=== PATIENT | male | born 1945 | race Caucasian/White ===

== ENCOUNTER → 2016-10-26 | Outpatient (CLI) | payer MEDICARE, BC ==
[2015-11-06 10:50] VITALS: BP 106/58
[~2016-10-26] MED LIST: ASPIRIN 32325 MG/TAB PO; CENTRUM SILVER1 TA1 PO; CENTRUM1 TA1 PO; COREG6.25 MG PO; EFFIENT10 M1 PO; FISH OIL1 IU PO; FLONASE0.05 MG/AC NS; FOLIC ACID1 MG PO; HYDROXYZINE HCL25 M1 PO; LASIX20 MG PO; LEXAPRO10 MG PO; MUCINEX1200 MG PO; NATURAL E400 IU PO; REQUIP 1MG T1 MG/TAB PO; SPIRIVA18 MCG IH; STIOLTO RESPIMAT4 GM IH; THEODUR 200MG PO; TUMS500 MG PO; VASOTEC 2.2.5 MG/TAB PO; VASOTEC10 M1 PO; VENTOLIN0.09 MG IH; VITAMIN B-6100 MG PO; ZANTAC150 M1 PO; ZANTAC150 MG PO; ZYRTEC-D 5 MG-11 TER PO
== END ==
LOC: LAB 09:00
DX: I25.10 Atherosclerotic heart disease of native coronary artery without angina pectoris (principal); E11.9 Type 2 diabetes mellitus without complications; N28.9 Disorder of kidney and ureter, unspecified

== ENCOUNTER → 2017-01-18 | Outpatient (CLI) | payer MEDICARE, BC ==
[2015-11-06 10:50] VITALS: BP 106/58
[2017-01-18 14:38] LABS: HEMATOCRIT 34.5 % (42.0-52.0); HEMOGLOBIN 11.4 g/dL (13.5-18.0); MEAN CELL VOLUME 90 fl (78-100); MEAN CORPUSCULAR HEMOGLOBIN 30 pg (27-31); MEAN CORPUSCULAR HGB CONC 33 g/dL (33-37); MEAN PLATELET VOLUME 9.8 fl (7.4-10.4); PLATELET COUNT 253 K/mm3 (130-400); RED BLOOD COUNT 3.84 M/mm3 (4.20-5.60); RED CELL DISTRIBUTION WIDTH 13.3 % (11.5-14.5); WHITE BLOOD COUNT 10.5 K/mm3 (4.8-10.8)
[2017-01-18 14:46] LABS: BUN/CREATININE RATIO 13.5 (6.0-26.0); CALCIUM 9.4 mg/dL (8.4-10.2); POTASSIUM 4.4 mmol/L (3.6-5.0)
[2017-01-18 15:07] LABS: LYMPHOCYTE 8 % (20-51); MONOCYTE 8 % (3-10); NEUTROPHILS 84 % (42-75)
== END ==
LOC: RAD 14:07
PROVIDERS: Nurse Practitioner Family
DX: R05 Cough (principal); R06.2 Wheezing; R50.9 Fever, unspecified

== ENCOUNTER 2017-05-10 11:25 | Inpatient (IN) | payer MEDICARE, BC ==
[~2017-05-10] VITALS: Ht 172.7 cm; Wt 70.5 kg
[~2017-05-10 11:25] MED LIST changes: -CARDIZEM CD 18180 MG PO; -CEFDINIR300 MG PO; -DALIRESP500 MCG PO; -IPRATROPIUM BROM3 M1 IH; -LOW DOSE ASPIRI81 MG PO; -PREDNISONE20 MG PO; -ROPINIROLE HCL1 MG PO; -THEOPHYLLINE400 M1 PO; -VASOTEC 10M10 MG/TAB PO; -ZITHROMAX500 M2 PO; -ZYRTEC10 M3 PO
[2017-05-10 11:41] VITALS: BP 119/66
[2017-05-10 11:55] VITALS: BP 119/66
[2017-05-10] MEDS ORDERED: THEOPHYLLINE400 M1 PO (13:45)
[2017-05-10] MEDS ORDERED: CARDIZEM CD 18180 MG PO (14:26)
[2017-05-10] MEDS ORDERED: VASOTEC 10M10 MG/TAB PO (14:27)
[2017-05-10] MEDS ORDERED: LOW DOSE ASPIRI81 MG PO (14:28)
[2017-05-10] MEDS ORDERED: ROPINIROLE HCL1 MG PO (14:30)
[2017-05-10] MEDS ORDERED: DALIRESP500 MCG PO ×2 (14:30→14:44)
[2017-05-10] MEDS ORDERED: HYDROXYZINE HCL25 M1 PO (14:44)
[2017-05-10] MEDS ORDERED: ZYRTEC10 M3 PO (14:44)
[2017-05-10 15:19] VITALS: BP 117/64
[2017-05-10 19:02] LABS: BUN/CREATININE RATIO 16.6 (6.0-26.0); CALCIUM 8.3 mg/dL (8.4-10.2); POTASSIUM 4.1 mmol/L (3.6-5.0)
[2017-05-10 19:08] VITALS: BP 122/61
[2017-05-10 22:58] VITALS: BP 131/63
[2017-05-11] VITALS (7 sets, daily range): BP systolic 99–140; BP diastolic 59–80
[2017-05-11 08:46] LABS: EOS % 0.3 % (0.0-4.0); HEMATOCRIT 37.5 % (42.0-52.0); HEMOGLOBIN 12.1 g/dL (13.5-18.0); LYMPH# 0.8 (1.50-4.00); MEAN CELL VOLUME 85 fl (78-100); MEAN CORPUSCULAR HEMOGLOBIN 27 pg (27-31); MEAN CORPUSCULAR HGB CONC 32 g/dL (33-37); MEAN PLATELET VOLUME 9.9 fl (7.4-10.4); MONO # 0.3 (0.20-0.80); NEU # 1.9 (1.40-6.50); PLATELET COUNT 150 K/mm3 (130-400); RED BLOOD COUNT 4.43 M/mm3 (4.20-5.60); RED CELL DISTRIBUTION WIDTH 14.2 % (11.5-14.5)
[2017-05-11 09:00] LABS: BUN/CREATININE RATIO 15.6 (6.0-26.0); CALCIUM 7.5 mg/dL (8.4-10.2)
[2017-05-12 02:52] VITALS: BP 117/63
[2017-05-12 06:40] VITALS: BP 114/72
[2017-05-12 11:04] VITALS: BP 120/59
[2017-05-12 15:11] VITALS: BP 109/59
[2017-05-12 18:21] VITALS: BP 109/59; BP 110/68
[2017-05-12 23:11] VITALS: BP 109/65
[2017-05-13 03:19] VITALS: BP 134/76
[2017-05-13 06:32] VITALS: BP 130/61
[2017-05-13 07:12] LABS: HEMATOCRIT 35.4 % (42.0-52.0); HEMOGLOBIN 11.7 g/dL (13.5-18.0); MEAN CELL VOLUME 86 fl (78-100); MEAN CORPUSCULAR HEMOGLOBIN 28 pg (27-31); MEAN CORPUSCULAR HGB CONC 33 g/dL (33-37); MEAN PLATELET VOLUME 10.4 fl (7.4-10.4); PLATELET COUNT 146 K/mm3 (130-400); RED BLOOD COUNT 4.13 M/mm3 (4.20-5.60); RED CELL DISTRIBUTION WIDTH 14.7 % (11.5-14.5); WHITE BLOOD COUNT 2.9 K/mm3 (4.8-10.8)
[2017-05-13 07:17] LABS: ALBUMIN 3.3 g/dL (3.5-5.0); BUN/CREATININE RATIO 13.7 (6.0-26.0); CALCIUM 8.6 mg/dL (8.4-10.2); POTASSIUM 3.9 mmol/L (3.6-5.0); TOTAL BILIRUBIN 0.1 mg/dL (0.2-1.3); TOTAL PROTEIN 6.1 g/dL (6.3-8.2)
[2017-05-13 07:41] LABS: LYMPHOCYTE 36 % (20-51); MONOCYTE 10 % (3-10); NEUTROPHILS 54 % (42-75)
[2017-05-13 11:02] VITALS: BP 126/66
[2017-05-13 15:08] VITALS: BP 119/63
[2017-05-13 18:30] VITALS: BP 124/73
[2017-05-13 23:19] VITALS: BP 91/62
[2017-05-14 03:23] VITALS: BP 148/78
[2017-05-14 06:46] VITALS: BP 144/100
== END 2017-05-14 10:00 | disposition swing bed (61) | DRG 191 ==
LOC: ED 11:25 → EDSTATUS 11:33 → MED/SURG 11:35 → EDSTATUS 11:49 → MED/SURG 14:57
PROVIDERS: Internal Medicine; ADMIT Nurse Practitioner Family
DX: J44.0 Chronic obstructive pulmonary disease with (acute) lower respiratory infection (principal); N17.9 Acute kidney failure, unspecified; J44.1 Chronic obstructive pulmonary disease with (acute) exacerbation; J22 Unspecified acute lower respiratory infection; E86.0 Dehydration; G20 Parkinson's disease; I12.9 Hypertensive chronic kidney disease with stage 1 through stage 4 chronic kidney disease, or unspecified chronic kidney disease; E11.22 Type 2 diabetes mellitus with diabetic chronic kidney disease; N18.3 Chronic kidney disease, stage 3 (moderate); Z87.891 Personal history of nicotine dependence
CPT/HCPCS: A7034; J0456; J0696; J1650; J2405; J7030; J7050; J7512; Q0177

== ENCOUNTER → 2017-05-10 | Outpatient (CLI) | payer MEDICARE, BC ==
[2015-11-06 10:50] VITALS: BP 106/58
[~2017-05-10] MED LIST changes: +CARDIZEM CD 18180 MG PO; +CEFDINIR300 MG PO; +DALIRESP500 MCG PO; +IPRATROPIUM BROM3 M1 IH; +LOW DOSE ASPIRI81 MG PO; +PREDNISONE20 MG PO; +ROPINIROLE HCL1 MG PO; +THEOPHYLLINE400 M1 PO; +VASOTEC 10M10 MG/TAB PO; +ZITHROMAX500 M2 PO; +ZYRTEC10 M3 PO
[2017-05-10 10:39] LABS: HEMATOCRIT 43.7 % (42.0-52.0); HEMOGLOBIN 14.4 g/dL (13.5-18.0); MEAN CELL VOLUME 85 fl (78-100); MEAN CORPUSCULAR HEMOGLOBIN 28 pg (27-31); MEAN CORPUSCULAR HGB CONC 33 g/dL (33-37); MEAN PLATELET VOLUME 10.2 fl (7.4-10.4); PLATELET COUNT 231 K/mm3 (130-400); RED BLOOD COUNT 5.14 M/mm3 (4.20-5.60); RED CELL DISTRIBUTION WIDTH 14.2 % (11.5-14.5); WHITE BLOOD COUNT 6.4 K/mm3 (4.8-10.8)
[2017-05-10 10:52] LABS: BUN/CREATININE RATIO 14.5 (6.0-26.0); CALCIUM 9.4 mg/dL (8.4-10.2); POTASSIUM 4.7 mmol/L (3.6-5.0)
[2017-05-10 10:55] LABS: BAND 1 % (0-10); LYMPHOCYTE 6 % (20-51); MONOCYTE 5 % (3-10); NEUTROPHILS 87 % (42-75)
[2017-05-10 11:09] LABS: URINE APPEARANCE CLEAR; URINE COLOR YELLOW
[2017-05-10 11:10] LABS: URINE BILIRUBIN NEGATIVE (NEGATIVE); URINE BLOOD 250 ery/uL (NEGATIVE); URINE GLUCOSE NEGATIVE (NEGATIVE); URINE KETONE NEGATIVE (NEGATIVE); URINE LEUKOCYTE ESTERASE NEGATIVE (NEGATIVE); URINE MUCUS PRESENT (NOT PRESENT); URINE NITRATE NEGATIVE (NEGATIVE); URINE PROTEIN(semi-quant) 1+ mg/dL (NEGATIVE); URINE UROBILINOGEN NORMAL (NORMAL)
== END ==
LOC: RAD 10:20
PROVIDERS: Nurse Practitioner Family
DX: R05 Cough (principal); R06.2 Wheezing; R53.1 Weakness; R06.02 Shortness of breath; R11.0 Nausea; J43.9 Emphysema, unspecified

== ENCOUNTER 2017-05-14 09:44 | Inpatient (IN) | payer MEDICARE, BC ==
[~2017-05-14] VITALS: Ht 172.7 cm; Wt 70.5 kg
[~2017-05-14 09:44] MED LIST changes: +CARDIZEM CD 18180 MG PO; +DALIRESP500 MCG PO; +LOW DOSE ASPIRI81 MG PO; +ROPINIROLE HCL1 MG PO; +THEOPHYLLINE400 M1 PO; +VASOTEC 10M10 MG/TAB PO; +ZYRTEC10 M3 PO
[2017-05-14 10:00] VITALS: BP 158/87
[2017-05-14 10:40] VITALS: BP 158/87
[2017-05-14 18:31] VITALS: BP 121/63
[2017-05-15 06:07] VITALS: BP 127/74
[2017-05-15 18:43] VITALS: BP 144/67
[2017-05-16 06:31] VITALS: BP 129/82
[2017-05-16 17:52] VITALS: BP 122/78
[2017-05-17 06:24] VITALS: BP 126/82
[2017-05-17 18:12] VITALS: BP 105/66
[2017-05-18 06:39] VITALS: BP 153/81
[2017-05-18 18:34] VITALS: BP 112/64
[2017-05-19 06:53] VITALS: BP 125/73
[2017-05-19 17:54] VITALS: BP 110/69
[2017-05-20] MEDS ORDERED: CEFDINIR300 MG PO (06:38)
[2017-05-20] MEDS ORDERED: IPRATROPIUM BROM3 M1 IH (06:39)
[2017-05-20] MEDS ORDERED: ZITHROMAX500 M2 PO (06:39)
[2017-05-20] MEDS ORDERED: PREDNISONE20 MG PO (06:42)
== END 2017-05-20 10:04 | disposition home or self-care (01) | DRG 192 ==
LOC: MED/SURG 09:44
PROVIDERS: ADMIT Internal Medicine
DX: J44.0 Chronic obstructive pulmonary disease with (acute) lower respiratory infection (principal); J44.1 Chronic obstructive pulmonary disease with (acute) exacerbation; I12.9 Hypertensive chronic kidney disease with stage 1 through stage 4 chronic kidney disease, or unspecified chronic kidney disease; N18.3 Chronic kidney disease, stage 3 (moderate); E83.119 Hemochromatosis, unspecified; G20 Parkinson's disease; E11.22 Type 2 diabetes mellitus with diabetic chronic kidney disease; R53.1 Weakness
CPT/HCPCS: J1650; J7512; Q0177

== ENCOUNTER → 2018-04-25 | Outpatient (CLI) | payer MEDICARE, BC ==
[~2018-04-25] MED LIST changes: +CEFDINIR300 MG PO; +IPRATROPIUM BROM3 M1 IH; +PREDNISONE20 MG PO; +ZITHROMAX500 M2 PO
[2018-04-25 10:35] LABS: HEMATOCRIT 39.4 % (42.0-52.0); HEMOGLOBIN 12.8 g/dL (13.5-18.0)
== END ==
LOC: LAB 10:23
PROVIDERS: Internal Medicine
DX: J44.9 Chronic obstructive pulmonary disease, unspecified (principal); E83.110 Hereditary hemochromatosis

== ENCOUNTER → 2018-04-26 | Outpatient (CLI) | payer MEDICARE, BC | LOC: RAD 09:12 | DX: M47.22 Other spondylosis with radiculopathy, cervical region (principal); M48.02 Spinal stenosis, cervical region ==

== ENCOUNTER → 2018-05-15 | Outpatient (CLI) | payer MEDICARE, BC ==
[2018-05-15 11:31] LABS: ALBUMIN 4.4 g/dL (3.5-5.0); AST-SGOT 27 U/L (17-59); CARBON DIOXIDE 22 mmol/L (22-30); GLUCOSE 129 mg/dL (75-110); POTASSIUM 4.9 mmol/L (3.6-5.0); SODIUM 145 mmol/L (137-145); TOTAL BILIRUBIN 0.5 mg/dL (0.2-1.3); TOTAL PROTEIN 7.6 g/dL (6.3-8.2)
[2018-05-15 11:35] LABS: BASO # 0.1 (0.02-0.10); EOS # 0.6 (0.04-0.40); HEMATOCRIT 40.5 % (42.0-52.0); HEMOGLOBIN 13.5 g/dL (13.5-18.0); LYMPH# 1.2 (1.50-4.00); MEAN CELL VOLUME 89 fl (78-100); MEAN CORPUSCULAR HEMOGLOBIN 30 pg (27-31); MEAN CORPUSCULAR HGB CONC 33 g/dL (33-37); MEAN PLATELET VOLUME 9.8 fl (7.4-10.4); MONO # 0.5 (0.20-0.80); NEU # 6.7 (1.40-6.50); PLATELET COUNT 262 K/mm3 (130-400); RED BLOOD COUNT 4.54 M/mm3 (4.20-5.60); RED CELL DISTRIBUTION WIDTH 13.5 % (11.5-14.5); WHITE BLOOD COUNT 9.1 K/mm3 (4.8-10.8)
[2018-05-15 12:25] LABS: EOS % 7.1 % (0.0-4.0)
[2018-05-15 12:34] LABS: ALT/SGPT < 3 U/L (21-72)
== END ==
LOC: LAB 11:02
PROVIDERS: Internal Medicine
DX: C67.9 Malignant neoplasm of bladder, unspecified (principal); I25.10 Atherosclerotic heart disease of native coronary artery without angina pectoris; E11.9 Type 2 diabetes mellitus without complications; I10 Essential (primary) hypertension

== ENCOUNTER → 2018-06-13 | Outpatient (CLI) | payer MEDICARE, BC ==
[2018-06-13 10:56] LABS: HEMATOCRIT 41.1 % (42.0-52.0); HEMOGLOBIN 13.8 g/dL (13.5-18.0)
== END ==
LOC: LAB 10:22
PROVIDERS: Internal Medicine
DX: E83.110 Hereditary hemochromatosis (principal)

== ENCOUNTER → 2018-08-15 | Outpatient (CLI) | payer MEDICARE, BC ==
[2018-08-15 14:10] LABS: HEMOGLOBIN 13.7 g/dL (13.5-18.0)
== END ==
LOC: LAB 10:22
PROVIDERS: Internal Medicine
DX: E83.110 Hereditary hemochromatosis (principal)

== ENCOUNTER → 2018-10-10 | Outpatient (CLI) | payer MEDICARE, BC ==
[2018-10-10 10:18] LABS: HEMATOCRIT 39.6 % (42.0-52.0); HEMOGLOBIN 12.8 g/dL (13.5-18.0)
== END ==
LOC: LAB 10:09
PROVIDERS: Internal Medicine
DX: E83.110 Hereditary hemochromatosis (principal)

== ENCOUNTER → 2019-04-10 | Outpatient (CLI) | payer MEDICARE, BC ==
[2019-04-10 08:58] LABS: HEMATOCRIT 40.1 % (42.0-52.0); HEMOGLOBIN 13.2 g/dL (13.5-18.0)
== END ==
LOC: LAB 08:47
PROVIDERS: Internal Medicine
DX: E83.110 Hereditary hemochromatosis (principal)

== ENCOUNTER → 2019-10-01 | Outpatient (CLI) | payer MEDICARE, BC ==
[2019-10-01 11:17] LABS: HEMATOCRIT 44.2 % (42.0-52.0); HEMOGLOBIN 15.1 g/dL (13.5-18.0)
[2019-10-01 13:54] LABS: MEAN CELL VOLUME 92 fl (78-100); MEAN CORPUSCULAR HEMOGLOBIN 31 pg (27-31); MEAN CORPUSCULAR HGB CONC 34 g/dL (33-37); PLATELET COUNT 279 K/mm3 (130-400); RED BLOOD COUNT 4.88 M/mm3 (4.20-5.60); RED CELL DISTRIBUTION WIDTH 14.4 % (11.5-14.5)
[2019-10-01 13:57] LABS: ALBUMIN 4.5 g/dL (3.4-4.8)
[2019-10-01 13:58] LABS: POTASSIUM 4.7 mmol/L (3.5-5.1)
[2019-10-01 14:00] LABS: TOTAL PROTEIN 7.6 g/dL (6.2-8.1)
[2019-10-01 14:02] LABS: TOTAL BILIRUBIN 0.6 mg/dL (0.2-1.2)
[2019-10-01 14:07] LABS: MAGNESIUM 1.85 mg/dL (1.60-2.60)
[2019-10-01 14:23] LABS: LYMPHOCYTE 12 % (20-51); MONOCYTE 6 % (3-10); NEUTROPHILS 67 % (42-75)
== END ==
LOC: LAB 10:57
PROVIDERS: Internal Medicine
DX: E11.22 Type 2 diabetes mellitus with diabetic chronic kidney disease (principal); N18.3 Chronic kidney disease, stage 3 (moderate); I25.10 Atherosclerotic heart disease of native coronary artery without angina pectoris; C67.9 Malignant neoplasm of bladder, unspecified

== ENCOUNTER → 2019-11-26 | Outpatient (CLI) | payer MEDICARE, BC ==
[2019-11-26 11:33] LABS: HEMATOCRIT 42.3 % (42.0-52.0); HEMOGLOBIN 14.5 g/dL (13.5-18.0); MEAN CELL VOLUME 93 fl (78-100); MEAN CORPUSCULAR HEMOGLOBIN 32 pg (27-31); MEAN CORPUSCULAR HGB CONC 34 g/dL (33-37); PLATELET COUNT 228 K/mm3 (130-400); RED BLOOD COUNT 4.53 M/mm3 (4.20-5.60); RED CELL DISTRIBUTION WIDTH 12.9 % (11.5-14.5)
[2019-11-26 11:46] LABS: ALBUMIN 4.2 g/dL (3.4-4.8); POTASSIUM 4.7 mmol/L (3.5-5.1)
[2019-11-26 11:47] LABS: CALCIUM 9.3 mg/dL (8.3-10.5)
[2019-11-26 11:48] LABS: TOTAL PROTEIN 7.1 g/dL (6.2-8.1)
[2019-11-26 11:50] LABS: TOTAL BILIRUBIN 0.6 mg/dL (0.2-1.2)
[2019-11-26 11:54] LABS: LYMPHOCYTE 17 % (20-51); MAGNESIUM 1.85 mg/dL (1.60-2.60); MONOCYTE 6 % (3-10); NEUTROPHILS 66 % (42-75)
[2019-11-26 12:04] LABS: PH-URINE 6.5 (5.0 - 8.0); URINE APPEARANCE CLOUDY; URINE BILIRUBIN NEGATIVE (NEGATIVE); URINE BLOOD TRACE (NEGATIVE); URINE COLOR YELLOW; URINE GLUCOSE NEGATIVE (NEGATIVE); URINE KETONE NEGATIVE (NEGATIVE); URINE LEUKOCYTE ESTERASE NEGATIVE (NEGATIVE); URINE NITRATE NEGATIVE (NEGATIVE); URINE PROTEIN(semi-quant) TRACE mg/dL (NEGATIVE); URINE UROBILINOGEN NORMAL (NORMAL)
[2019-11-26 12:05] LABS: URINE MUCUS PRESENT (NOT PRESENT)
== END ==
LOC: LAB 11:20
PROVIDERS: Internal Medicine
DX: E11.22 Type 2 diabetes mellitus with diabetic chronic kidney disease (principal); N18.3 Chronic kidney disease, stage 3 (moderate); E83.119 Hemochromatosis, unspecified; I25.10 Atherosclerotic heart disease of native coronary artery without angina pectoris; C67.9 Malignant neoplasm of bladder, unspecified; N39.0 Urinary tract infection, site not specified

== ENCOUNTER → 2019-12-03 | Outpatient (CLI) | payer MEDICARE, BC ==
[2019-12-03 11:02] LABS: POTASSIUM 4.6 mmol/L (3.5-5.1)
[2019-12-03 11:04] LABS: CALCIUM 9.4 mg/dL (8.3-10.5)
== END ==
LOC: LAB 10:41
PROVIDERS: Internal Medicine
DX: N18.3 Chronic kidney disease, stage 3 (moderate) (principal)

== ENCOUNTER → 2019-12-05 | Outpatient (CLI) | payer MEDICARE, BC | LOC: RAD 13:07 → AMSURD 13:07 | DX: E11.22 Type 2 diabetes mellitus with diabetic chronic kidney disease (principal); I12.9 Hypertensive chronic kidney disease with stage 1 through stage 4 chronic kidney disease, or unspecified chronic kidney disease; N18.3 Chronic kidney disease, stage 3 (moderate); C67.9 Malignant neoplasm of bladder, unspecified; I25.10 Atherosclerotic heart disease of native coronary artery without angina pectoris ==

== ENCOUNTER → 2019-12-24 | Outpatient (CLI) | payer MEDICARE, BC ==
[2019-12-24 10:53] LABS: POTASSIUM 4.4 mmol/L (3.5-5.1)
[2019-12-24 10:54] LABS: CALCIUM 9.4 mg/dL (8.3-10.5)
== END ==
LOC: LAB 10:33
PROVIDERS: Internal Medicine
DX: N28.9 Disorder of kidney and ureter, unspecified (principal)

== ENCOUNTER → 2020-03-25 | Outpatient (CLI) | payer MEDICARE, BC ==
[2020-03-25 14:31] LABS: HEMATOCRIT 41.8 % (42.0-52.0); HEMOGLOBIN 13.7 g/dL (13.5-18.0)
== END ==
LOC: LAB 14:03
PROVIDERS: Internal Medicine
DX: E83.110 Hereditary hemochromatosis (principal)

== ENCOUNTER → 2020-06-23 | Outpatient (CLI) | payer MEDICARE, BC ==
[~2020-06-23] MED LIST changes: +ASPIRIN E.C. 8181 MG PO; +ESCITALOPRAM10 MG PO; +PEPCID 20MG TAB20 MG PO; +PHARMASSURE VI100 MG PO; +PREDNISONE20 M1 PO; +TRELEGY ELLIPT1 EACH IH; +VITAMIN C500 M6 PO; +VITAMIN E1000 UNI1 PO; +ZINC50 M3 PO
[2020-06-23 13:18] LABS: HEMATOCRIT 43.7 % (42.0-52.0); HEMOGLOBIN 14.2 g/dL (13.5-18.0)
== END ==
LOC: LAB 12:56
PROVIDERS: Internal Medicine
DX: E83.110 Hereditary hemochromatosis (principal)

== ENCOUNTER 2020-09-11 05:39 | Emergency (ER) | payer MEDICARE, BC ==
[~2020-09-11 05:39] MED LIST changes: -ASPIRIN E.C. 8181 MG PO; -ESCITALOPRAM10 MG PO; -PEPCID 20MG TAB20 MG PO; -PHARMASSURE VI100 MG PO; -PREDNISONE20 M1 PO; -TRELEGY ELLIPT1 EACH IH; -VITAMIN C500 M6 PO; -VITAMIN E1000 UNI1 PO; -ZINC50 M3 PO
[2020-09-11] MEDS ORDERED: PREDNISONE20 M1 PO (06:13)
[2020-09-11] MEDS ORDERED: ESCITALOPRAM10 MG PO (06:13)
[2020-09-11] MEDS ORDERED: PEPCID 20MG TAB20 MG PO (06:18)
[2020-09-11] MEDS ORDERED: ASPIRIN E.C. 8181 MG PO (06:20)
[2020-09-11] MEDS ORDERED: PHARMASSURE VI100 MG PO (06:27)
[2020-09-11] MEDS ORDERED: VITAMIN E1000 UNI1 PO (06:28)
[2020-09-11] MEDS ORDERED: ZINC50 M3 PO (06:28)
[2020-09-11] MEDS ORDERED: VITAMIN C500 M6 PO (06:28)
[2020-09-11 07:10] LABS: BASO # 0.02 (0.02-0.10); EOS # 0.04 (0.04-0.40); EOS % 0.4 % (0.0-4.0); HEMATOCRIT 39.7 % (42.0-52.0); HEMOGLOBIN 13.1 g/dL (13.5-18.0); MEAN CELL VOLUME 91 fl (78-100); MEAN CORPUSCULAR HEMOGLOBIN 30 pg (27-31); MEAN CORPUSCULAR HGB CONC 33 g/dL (33-37); MEAN PLATELET VOLUME 11.2 fl (7.4-10.4); MONO # 0.66 (0.20-0.80); NEU # 9.23 (1.40-6.50); PLATELET COUNT 174 K/mm3 (130-400); RED BLOOD COUNT 4.36 M/mm3 (4.20-5.60); RED CELL DISTRIBUTION WIDTH 13.7 % (11.5-14.5); WHITE BLOOD COUNT 10.7 K/mm3 (4.8-10.8)
[2020-09-11 07:19] LABS: ALBUMIN 3.9 g/dL (3.4-4.8); POTASSIUM 4.8 mmol/L (3.5-5.1)
[2020-09-11 07:21] LABS: CALCIUM 9.6 mg/dL (8.3-10.5)
[2020-09-11 07:22] LABS: TOTAL PROTEIN 6.5 g/dL (6.2-8.1)
[2020-09-11 07:24] LABS: TOTAL BILIRUBIN 0.5 mg/dL (0.2-1.2)
[2020-09-11 07:36] LABS: TROPONIN-I 0.13 ng/mL (<0.030)
[2020-09-11 07:38] LABS: PROTHROMBIN TIME 10.4 SECONDS (9.0-12.0)
[2020-09-11] MEDS ORDERED: TRELEGY ELLIPT1 EACH IH (09:09)
[2020-09-11] MEDS ORDERED: PREDNISONE20 MG PO (09:09)
[2020-09-11 09:20] VITALS: BP 118/75
[2020-09-11 09:49] LABS: D-DIMER 0.61 mg/L FEU (0.15-0.50)
== END 2020-09-11 09:20 | disposition home or self-care (01) ==
LOC: ED 05:39
PROVIDERS: Nurse Practitioner
DX: J44.1 Chronic obstructive pulmonary disease with (acute) exacerbation (principal); I25.10 Atherosclerotic heart disease of native coronary artery without angina pectoris; E11.9 Type 2 diabetes mellitus without complications; I12.9 Hypertensive chronic kidney disease with stage 1 through stage 4 chronic kidney disease, or unspecified chronic kidney disease; N18.9 Chronic kidney disease, unspecified; Z79.82 Long term (current) use of aspirin
CPT/HCPCS: J2930

== ENCOUNTER 2020-09-11 19:39 | Emergency (ER) | payer MEDICARE, BC ==
[~2020-09-11 19:39] MED LIST changes: +ASPIRIN E.C. 8181 MG PO; +ESCITALOPRAM10 MG PO; +PEPCID 20MG TAB20 MG PO; +PHARMASSURE VI100 MG PO; +PREDNISONE20 M1 PO; +TRELEGY ELLIPT1 EACH IH; +VITAMIN C500 M6 PO; +VITAMIN E1000 UNI1 PO; +ZINC50 M3 PO
[2020-09-11 20:43] LABS: HEMATOCRIT 40.3 % (42.0-52.0); HEMOGLOBIN 13.2 g/dL (13.5-18.0); MEAN CELL VOLUME 91 fl (78-100); MEAN CORPUSCULAR HEMOGLOBIN 30 pg (27-31); MEAN CORPUSCULAR HGB CONC 33 g/dL (33-37); MEAN PLATELET VOLUME 11.5 fl (7.4-10.4); PLATELET COUNT 180 K/mm3 (130-400); RED BLOOD COUNT 4.41 M/mm3 (4.20-5.60); RED CELL DISTRIBUTION WIDTH 13.9 % (11.5-14.5); WHITE BLOOD COUNT 5.2 K/mm3 (4.8-10.8)
[2020-09-11 20:52] LABS: ALBUMIN 4.3 g/dL (3.4-4.8)
[2020-09-11 20:53] LABS: POTASSIUM 5.1 mmol/L (3.5-5.1)
[2020-09-11 20:54] LABS: CALCIUM 9.6 mg/dL (8.3-10.5)
[2020-09-11 20:55] LABS: TOTAL PROTEIN 7.2 g/dL (6.2-8.1)
[2020-09-11 20:57] LABS: TOTAL BILIRUBIN 0.6 mg/dL (0.2-1.2)
[2020-09-11 21:01] LABS: MAGNESIUM 1.99 mg/dL (1.60-2.60)
[2020-09-11 21:07] LABS: TROPONIN-I 0.28 ng/mL (<0.030)
[2020-09-11 21:22] LABS: D-DIMER 0.54 mg/L FEU (0.15-0.50)
[2020-09-11 21:46] LABS: LYMPHOCYTE 2 % (20-51); MONOCYTE 1 % (3-10); NEUTROPHILS 97 % (42-75)
[2020-09-11 21:47] LABS: URINE APPEARANCE HAZY; URINE BILIRUBIN NEGATIVE (NEGATIVE); URINE BLOOD TRACE (NEGATIVE); URINE COLOR YELLOW; URINE GLUCOSE NEGATIVE (NEGATIVE); URINE KETONE NEGATIVE (NEGATIVE); URINE LEUKOCYTE ESTERASE TRACE (NEGATIVE); URINE NITRATE NEGATIVE (NEGATIVE); URINE PROTEIN(semi-quant) 2+ mg/dL (NEGATIVE); URINE UROBILINOGEN NORMAL (NORMAL)
[2020-09-11 22:46] VITALS: BP 112/72
== END 2020-09-11 22:46 | disposition short-term general hospital (02) ==
LOC: ED 19:39
PROVIDERS: Nurse Practitioner Family
DX: J44.9 Chronic obstructive pulmonary disease, unspecified (principal); I50.9 Heart failure, unspecified; E11.22 Type 2 diabetes mellitus with diabetic chronic kidney disease; N18.9 Chronic kidney disease, unspecified; J81.1 Chronic pulmonary edema; R74.8 Abnormal levels of other serum enzymes; I25.10 Atherosclerotic heart disease of native coronary artery without angina pectoris; G20 Parkinson's disease; F17.210 Nicotine dependence, cigarettes, uncomplicated; Z95.9 Presence of cardiac and vascular implant and graft, unspecified; Z85.51 Personal history of malignant neoplasm of bladder; Z79.52 Long term (current) use of systemic steroids; Z79.82 Long term (current) use of aspirin; Z79.899 Other long term (current) drug therapy; Z20.822 Contact with and (suspected) exposure to COVID-19
CPT/HCPCS: J1940; J2930; J7030

== ENCOUNTER → 2020-10-16 | Outpatient (CLI) | payer MEDICARE, BC ==
[2020-10-16 12:54] LABS: BASO # 0.08 (0.02-0.10); EOS # 0.54 (0.04-0.40); EOS % 7.3 % (0.0-4.0); HEMOGLOBIN 12.7 g/dL (13.5-18.0); LYMPH# 1.34 (1.50-4.00); MEAN CELL VOLUME 93 fl (78-100); MEAN CORPUSCULAR HEMOGLOBIN 30 pg (27-31); MEAN CORPUSCULAR HGB CONC 33 g/dL (33-37); MEAN PLATELET VOLUME 11.6 fl (7.4-10.4); MONO # 0.72 (0.20-0.80); NEU # 4.68 (1.40-6.50); PLATELET COUNT 193 K/mm3 (130-400); RED CELL DISTRIBUTION WIDTH 14.1 % (11.5-14.5); WHITE BLOOD COUNT 7.4 K/mm3 (4.8-10.8)
== END ==
LOC: LAB 11:40
PROVIDERS: Internal Medicine
DX: I25.10 Atherosclerotic heart disease of native coronary artery without angina pectoris (principal); I25.5 Ischemic cardiomyopathy; E83.110 Hereditary hemochromatosis; M10.9 Gout, unspecified; K90.9 Intestinal malabsorption, unspecified

== ENCOUNTER → 2020-12-11 | Outpatient (CLI) | payer MEDICARE, BC ==
[2020-12-11 12:41] LABS: BASO # 0.08 (0.02-0.10); EOS % 11.6 % (0.0-4.0); HEMATOCRIT 45.8 % (42.0-52.0); HEMOGLOBIN 14.8 g/dL (13.5-18.0); LYMPH# 1.28 (1.50-4.00); MEAN CELL VOLUME 95 fl (78-100); MEAN CORPUSCULAR HEMOGLOBIN 31 pg (27-31); MEAN CORPUSCULAR HGB CONC 32 g/dL (33-37); MEAN PLATELET VOLUME 10.8 fl (7.4-10.4); MONO # 0.69 (0.20-0.80); NEU # 6.33 (1.40-6.50); PLATELET COUNT 165 K/mm3 (130-400); RED BLOOD COUNT 4.82 M/mm3 (4.20-5.60); RED CELL DISTRIBUTION WIDTH 14.6 % (11.5-14.5); WHITE BLOOD COUNT 9.5 K/mm3 (4.8-10.8)
[2020-12-11 12:59] LABS: ALBUMIN 4.2 g/dL (3.4-4.8); POTASSIUM 5.2 mmol/L (3.5-5.1)
[2020-12-11 13:01] LABS: TOTAL PROTEIN 7.1 g/dL (6.2-8.1)
[2020-12-11 13:03] LABS: TOTAL BILIRUBIN 0.8 mg/dL (0.2-1.2)
[2020-12-11 13:45] LABS: CALCIUM 10.4 mg/dL (8.3-10.5)
== END ==
LOC: LAB 12:23
PROVIDERS: Internal Medicine
DX: I25.5 Ischemic cardiomyopathy (principal); I25.10 Atherosclerotic heart disease of native coronary artery without angina pectoris; E83.110 Hereditary hemochromatosis

== ENCOUNTER 2021-03-11 23:02 | Observation (INO) | payer MEDICARE, BC ==
[~2021-03-11] VITALS: Ht 172.7 cm; Wt 51.6 kg
[2021-03-11 23:55] LABS: HEMATOCRIT 45.3 % (42.0-52.0); MEAN CELL VOLUME 99 fl (78-100); MEAN CORPUSCULAR HEMOGLOBIN 33 pg (27-31); MEAN CORPUSCULAR HGB CONC 33 g/dL (33-37); MEAN PLATELET VOLUME 10.3 fl (7.4-10.4); PLATELET COUNT 148 K/mm3 (130-400); RED CELL DISTRIBUTION WIDTH 14.8 % (11.5-14.5); WHITE BLOOD COUNT 6.7 K/mm3 (4.8-10.8)
[2021-03-12 00:04] LABS: ALBUMIN 4.1 g/dL (3.4-4.8); POTASSIUM 4.5 mmol/L (3.5-5.1)
[2021-03-12 00:06] LABS: CALCIUM 9.5 mg/dL (8.3-10.5)
[2021-03-12 00:07] LABS: TOTAL PROTEIN 6.9 g/dL (6.2-8.1)
[2021-03-12 00:09] LABS: TOTAL BILIRUBIN 0.9 mg/dL (0.2-1.2)
[2021-03-12 00:09] LABS: URINE APPEARANCE CLOUDY; URINE COLOR YELLOW; URINE GLUCOSE 50 mg/dL mg/dL (NEGATIVE); URINE PROTEIN(semi-quant) 3+ mg/dL (NEGATIVE)
[2021-03-12 00:10] LABS: URINE BILIRUBIN NEGATIVE (NEGATIVE); URINE BLOOD 250 ery/uL (NEGATIVE); URINE KETONE NEGATIVE (NEGATIVE); URINE LEUKOCYTE ESTERASE TRACE (NEGATIVE); URINE MUCUS PRESENT (NOT PRESENT); URINE NITRATE NEGATIVE (NEGATIVE); URINE UROBILINOGEN NORMAL (NORMAL)
[2021-03-12 00:15] LABS: LYMPHOCYTE 6 % (20-51); MONOCYTE 8 % (3-10); NEUTROPHILS 77 % (42-75)
[2021-03-12] MEDS ORDERED: LIPITOR 80MG80 MG PO (00:59)
[2021-03-12] MEDS ORDERED: COREG 6.256.25 MG/TA PO (01:00)
[2021-03-12] MEDS ORDERED: VITAMIN D3125 MCG PO (01:04)
[2021-03-12] MEDS ORDERED: FARXIGA5 MG PO (01:05)
[2021-03-12] MEDS ORDERED: OCUVITE ADULT1 EAC1 PO (01:07)
[2021-03-12] MEDS ORDERED: SYNTHROID25 MCG PO (01:08)
[2021-03-12] MEDS ORDERED: VITAMIN B225 MG PO (01:10)
[2021-03-12] MEDS ORDERED: PHARMASSURE VI100 MG PO (01:11)
[2021-03-12] MEDS ORDERED: SODIUM BIC650 MG/TAB PO (01:12)
[2021-03-12 01:56] VITALS: BP 136/74
[2021-03-12 06:04] VITALS: BP 140/76
[2021-03-12 10:06] VITALS: BP 99/64
[2021-03-12 15:01] VITALS: BP 125/74
[2021-03-12 18:22] VITALS: BP 150/79
[2021-03-12 22:08] VITALS: BP 116/68
[2021-03-13 02:12] VITALS: BP 120/68
[2021-03-13 05:59] VITALS: BP 123/69
[2021-03-13 10:01] VITALS: BP 120/64
== END 2021-03-13 11:15 | disposition home or self-care (01) ==
LOC: ED 23:02 → MED/SURG 03-12 01:02
PROVIDERS: ADMIT Physician Assistant
DX: J44.1 Chronic obstructive pulmonary disease with (acute) exacerbation (principal); J96.10 Chronic respiratory failure, unspecified whether with hypoxia or hypercapnia; I13.0 Hypertensive heart and chronic kidney disease with heart failure and stage 1 through stage 4 chronic kidney disease, or unspecified chronic kidney disease; I25.5 Ischemic cardiomyopathy; I50.9 Heart failure, unspecified; I25.10 Atherosclerotic heart disease of native coronary artery without angina pectoris; J40 Bronchitis, not specified as acute or chronic; E11.9 Type 2 diabetes mellitus without complications; N18.30 Chronic kidney disease, stage 3 unspecified; M10.9 Gout, unspecified; E83.119 Hemochromatosis, unspecified; G20 Parkinson's disease; G25.81 Restless legs syndrome; F17.210 Nicotine dependence, cigarettes, uncomplicated; Z79.890 Hormone replacement therapy; Z85.51 Personal history of malignant neoplasm of bladder; Z79.899 Other long term (current) drug therapy; Z79.82 Long term (current) use of aspirin
CPT/HCPCS: G0378; J1650; J2930

== ENCOUNTER → 2021-03-20 | Outpatient (CLI) | payer MEDICARE, BC ==
[~2021-03-20] MED LIST changes: +COREG 6.256.25 MG/TA PO; +FARXIGA5 MG PO; +LIPITOR 80MG80 MG PO; +OCUVITE ADULT1 EAC1 PO; +SODIUM BIC650 MG/TAB PO; +SYNTHROID25 MCG PO; +VITAMIN B225 MG PO; +VITAMIN D3125 MCG PO
[2021-03-20 16:55] LABS: BASO # 0.02 K/mm3 (0.02-0.10); EOS # 0.27 K/mm3 (0.04-0.40); EOS % 1.9 % (0.0-4.0); HEMATOCRIT 50.6 % (42.0-52.0); HEMOGLOBIN 17.2 g/dL (13.5-18.0); LYMPH# 1.16 K/mm3 (1.50-4.00); MEAN CELL VOLUME 94 fl (78-100); MEAN CORPUSCULAR HEMOGLOBIN 32 pg (27-31); MEAN CORPUSCULAR HGB CONC 34 g/dL (33-37); MEAN PLATELET VOLUME 9.7 fl (7.4-10.4); MONO # 1.04 K/mm3 (0.20-0.80); NEU # 11.91 K/mm3 (1.40-6.50); PLATELET COUNT 194 K/mm3 (130-400); RED BLOOD COUNT 5.38 M/mm3 (4.20-5.60); RED CELL DISTRIBUTION WIDTH 13.7 % (11.5-14.5); WHITE BLOOD COUNT 14.4 K/mm3 (4.8-10.8)
[2021-03-20 17:04] LABS: POTASSIUM 5.4 mmol/L (3.5-5.1)
[2021-03-20 17:06] LABS: CALCIUM 10.2 mg/dL (8.3-10.5)
[2021-03-20 17:07] LABS: TOTAL PROTEIN 6.9 g/dL (6.2-8.1)
[2021-03-20 17:09] LABS: TOTAL BILIRUBIN 0.8 mg/dL (0.2-1.2)
[2021-03-20 17:13] LABS: MAGNESIUM 2.09 mg/dL (1.60-2.60)
[2021-03-21 18:04] LABS: TESTOSTERONE 99 ng/dL (221-716)
== END ==
LOC: LAB 16:32
PROVIDERS: Internal Medicine
DX: E11.9 Type 2 diabetes mellitus without complications (principal); I25.5 Ischemic cardiomyopathy; I10 Essential (primary) hypertension; R62.7 Adult failure to thrive; N52.9 Male erectile dysfunction, unspecified

== ENCOUNTER → 2021-03-21 | Outpatient (CLI) | payer MEDICARE, BC ==
[~2021-03-21] VITALS: Ht 172.7 cm; Wt 54.1 kg
[2021-03-21 11:15] VITALS: BP 104/74; BP 130/76
[2021-03-21 13:30] VITALS: BP 145/93
== END ==
LOC: AMSURD 11:02
DX: E86.0 Dehydration (principal)

== ENCOUNTER → 2021-03-24 | Outpatient (CLI) | payer MEDICARE, BC ==
[2021-03-25 22:25] LABS: FOLLICLE STIMULATING HORMONE 6.1 mIU/mL (1.0-12.0); LUTENIZING HORMONE 1.1 mIU/mL (0.6-12.1); PROLACTIN AMS 7.7 ng/mL (3.5-19.4)
== END ==
LOC: LAB 16:44
PROVIDERS: Internal Medicine
DX: R79.89 Other specified abnormal findings of blood chemistry (principal)

== ENCOUNTER 2021-04-22 11:32 | Emergency (ER) | payer MEDICARE, BC ==
[~2021-04-22] VITALS: Ht 172.7 cm; Wt 53.8 kg
[2021-04-22 13:19] LABS: HEMATOCRIT 45.4 % (42.0-52.0); HEMOGLOBIN 15.5 g/dL (13.5-18.0); MEAN CELL VOLUME 93 fl (78-100); MEAN CORPUSCULAR HEMOGLOBIN 32 pg (27-31); MEAN CORPUSCULAR HGB CONC 34 g/dL (33-37); MEAN PLATELET VOLUME 10.2 fl (7.4-10.4); PLATELET COUNT 165 K/mm3 (130-400); RED BLOOD COUNT 4.89 M/mm3 (4.20-5.60); RED CELL DISTRIBUTION WIDTH 12.7 % (11.5-14.5); WHITE BLOOD COUNT 8.2 K/mm3 (4.8-10.8)
[2021-04-22 13:24] LABS: ALBUMIN 3.5 g/dL (3.4-4.8)
[2021-04-22 13:25] LABS: POTASSIUM 4.3 mmol/L (3.5-5.1)
[2021-04-22 13:26] LABS: CALCIUM 10.1 mg/dL (8.3-10.5)
[2021-04-22 13:27] LABS: TOTAL PROTEIN 7.2 g/dL (6.2-8.1)
[2021-04-22 13:29] LABS: TOTAL BILIRUBIN 0.6 mg/dL (0.2-1.2)
[2021-04-22 13:32] LABS: URINE APPEARANCE CLOUDY; URINE COLOR YELLOW
[2021-04-22 13:33] LABS: URINE BILIRUBIN NEGATIVE (NEGATIVE); URINE BLOOD TRACE (NEGATIVE); URINE GLUCOSE NEGATIVE (NEGATIVE); URINE KETONE NEGATIVE (NEGATIVE); URINE LEUKOCYTE ESTERASE TRACE (NEGATIVE); URINE NITRATE NEGATIVE (NEGATIVE); URINE PROTEIN(semi-quant) 2+ (NEGATIVE); URINE UROBILINOGEN NORMAL (NORMAL)
[2021-04-22] MEDS ORDERED: FARXIGA5 MG PO (13:33)
[2021-04-22 13:34] LABS: URINE MUCUS PRESENT (NOT PRESENT)
[2021-04-22 13:37] LABS: LYMPHOCYTE 7 % (20-51); NEUTROPHILS 84 % (42-75)
[2021-04-22 13:38] LABS: MONOCYTE 7 % (3-10)
[2021-04-22 16:05] VITALS: BP 134/89
== END 2021-04-22 15:40 | disposition home or self-care (01) ==
LOC: ED 11:32
PROVIDERS: Family Medicine
DX: U07.1 COVID-19 (principal); J96.10 Chronic respiratory failure, unspecified whether with hypoxia or hypercapnia; I25.10 Atherosclerotic heart disease of native coronary artery without angina pectoris; I12.9 Hypertensive chronic kidney disease with stage 1 through stage 4 chronic kidney disease, or unspecified chronic kidney disease; E11.22 Type 2 diabetes mellitus with diabetic chronic kidney disease; N18.32 Chronic kidney disease, stage 3b; G20 Parkinson's disease; J44.9 Chronic obstructive pulmonary disease, unspecified; F17.210 Nicotine dependence, cigarettes, uncomplicated; Z79.82 Long term (current) use of aspirin; Z79.899 Other long term (current) drug therapy
CPT/HCPCS: J7030

== ENCOUNTER → 2021-04-28 | Outpatient (CLI) | payer MEDICARE, BC ==
[~2021-04-28] VITALS: Ht 172.7 cm; Wt 52.7 kg
[2021-04-28 12:04] VITALS: BP 134/78
[2021-04-28 14:00] VITALS: BP 143/80
== END ==
LOC: LAB 10:40 → AMSURD 10:40
DX: R06.00 Dyspnea, unspecified (principal)
CPT/HCPCS: J7030

== ENCOUNTER → 2021-04-30 | Outpatient (CLI) | payer MEDICARE, BC ==
[~2021-04-30] MED LIST changes: +TESTOSTERONE75 GM TD
[2021-04-30 13:21] LABS: HEMOGLOBIN 15.1 g/dL (13.5-18.0); MEAN CELL VOLUME 92 fl (78-100); MEAN CORPUSCULAR HEMOGLOBIN 32 pg (27-31); MEAN CORPUSCULAR HGB CONC 34 g/dL (33-37); MEAN PLATELET VOLUME 10.2 fl (7.4-10.4); PLATELET COUNT 204 K/mm3 (130-400); RED BLOOD COUNT 4.79 M/mm3 (4.20-5.60); RED CELL DISTRIBUTION WIDTH 12.5 % (11.5-14.5)
[2021-04-30 13:25] LABS: SODIUM 138 mmol/L (136-145)
[2021-04-30 13:27] LABS: GLUCOSE 149 mg/dL (75-110); TOTAL PROTEIN 5.8 g/dL (6.2-8.1)
[2021-04-30 13:29] LABS: TOTAL BILIRUBIN 0.5 mg/dL (0.2-1.2)
[2021-04-30 13:32] LABS: AST-SGOT 114 U/L (5-34)
[2021-04-30 13:33] LABS: ALT/SGPT 270 U/L (0-55)
[2021-04-30 13:53] LABS: CARBON DIOXIDE 15 mmol/L (23-31)
[2021-04-30 15:20] LABS: ERYTHROCYTE SEDIMENTATION RATE 33 mm/hr (0-20)
[2021-04-30 15:38] LABS: NEUTROPHILS 89 % (42-75)
[2021-04-30 15:39] LABS: LYMPHOCYTE 5 % (20-51); MONOCYTE 6 % (3-10)
== END ==
LOC: LAB 12:37
PROVIDERS: Internal Medicine
DX: J98.11 Atelectasis (principal); J43.9 Emphysema, unspecified; K80.20 Calculus of gallbladder without cholecystitis without obstruction; R91.8 Other nonspecific abnormal finding of lung field; R41.0 Disorientation, unspecified; Z90.49 Acquired absence of other specified parts of digestive tract

== ENCOUNTER → 2021-05-01 | Outpatient (CLI) | payer MEDICARE, BC ==
[~2021-05-01] VITALS: Ht 172.7 cm; Wt 52.7 kg
[2021-05-01 09:59] VITALS: BP 138/64
[2021-05-01 12:30] VITALS: BP 161/92
== END ==
LOC: AMSURD 08:49
DX: E86.0 Dehydration (principal)
CPT/HCPCS: J7030

== ENCOUNTER 2021-05-04 14:18 | Emergency (ER) | payer MEDICARE, BC ==
[~2021-05-04] VITALS: Ht 167.6 cm; Wt 49.9 kg
[~2021-05-04 14:18] MED LIST changes: -TESTOSTERONE75 GM TD
[2021-05-04 15:22] VITALS: BP 132/88
[2021-05-04 15:28] LABS: BASO # 0.02 K/mm3 (0.02-0.10); EOS # 0.01 K/mm3 (0.04-0.40); HEMATOCRIT 44.5 % (42.0-52.0); HEMOGLOBIN 15.3 g/dL (13.5-18.0); LYMPH# 0.58 K/mm3 (1.50-4.00); MEAN CELL VOLUME 91 fl (78-100); MEAN CORPUSCULAR HEMOGLOBIN 31 pg (27-31); MEAN CORPUSCULAR HGB CONC 34 g/dL (33-37); MEAN PLATELET VOLUME 10.6 fl (7.4-10.4); MONO # 0.82 K/mm3 (0.20-0.80); NEU # 20.62 K/mm3 (1.40-6.50); PLATELET COUNT 168 K/mm3 (130-400); RED BLOOD COUNT 4.88 M/mm3 (4.20-5.60)
[2021-05-04 15:29] LABS: WHITE BLOOD COUNT 22.1 K/mm3 (4.8-10.8)
[2021-05-04 15:44] LABS: CALCIUM 8.4 mg/dL (8.3-10.5)
[2021-05-04 15:45] LABS: TOTAL PROTEIN 5.4 g/dL (6.2-8.1)
[2021-05-04 15:47] LABS: TOTAL BILIRUBIN 0.7 mg/dL (0.2-1.2)
[2021-05-04 16:16] LABS: POTASSIUM 2.7 mmol/L (3.5-5.1)
[2021-05-04 18:38] LABS: URINE APPEARANCE CLEAR; URINE BILIRUBIN NEGATIVE (NEGATIVE); URINE BLOOD 50 ery/uL (NEGATIVE); URINE COLOR YELLOW; URINE KETONE NEGATIVE (NEGATIVE); URINE LEUKOCYTE ESTERASE NEGATIVE (NEGATIVE); URINE NITRATE NEGATIVE (NEGATIVE); URINE PROTEIN(semi-quant) 2+ (NEGATIVE); URINE UROBILINOGEN NORMAL (NORMAL)
[2021-05-04 18:39] LABS: URINE MUCUS PRESENT (NOT PRESENT)
[2021-05-04] MEDS ORDERED: TESTOSTERONE75 GM TD (20:39)
== END 2021-05-04 19:53 | disposition other institution (70) ==
LOC: ED 14:18
PROVIDERS: Nurse Practitioner
DX: E87.8 Other disorders of electrolyte and fluid balance, not elsewhere classified (principal); E87.6 Hypokalemia; E83.39 Other disorders of phosphorus metabolism; R44.1 Visual hallucinations; E86.0 Dehydration; E11.22 Type 2 diabetes mellitus with diabetic chronic kidney disease; I12.9 Hypertensive chronic kidney disease with stage 1 through stage 4 chronic kidney disease, or unspecified chronic kidney disease; N18.30 Chronic kidney disease, stage 3 unspecified; J43.9 Emphysema, unspecified; I25.10 Atherosclerotic heart disease of native coronary artery without angina pectoris; Z79.82 Long term (current) use of aspirin; Z79.899 Other long term (current) drug therapy
CPT/HCPCS: J7030

== ENCOUNTER 2021-05-04 18:52 | Inpatient (IN) | payer MEDICARE, BC ==
[~2021-05-04] VITALS: Ht 172.7 cm; Wt 48.0 kg
[2021-05-04 20:00] VITALS: BP 114/72
[2021-05-04] MEDS ORDERED: TESTOSTERONE75 GM TD (20:39)
[2021-05-04 22:39] VITALS: BP 129/67
[2021-05-05 02:25] VITALS: BP 126/79
[2021-05-05 03:47] LABS: ALBUMIN 2.9 g/dL (3.4-4.8); POTASSIUM 3.5 mmol/L (3.5-5.1)
[2021-05-05 03:49] LABS: CALCIUM 7.9 mg/dL (8.3-10.5)
[2021-05-05 03:50] LABS: TOTAL PROTEIN 5.5 g/dL (6.2-8.1)
[2021-05-05 03:52] LABS: TOTAL BILIRUBIN 0.7 mg/dL (0.2-1.2)
[2021-05-05 04:03] LABS: MAGNESIUM 1.79 mg/dL (1.60-2.60)
[2021-05-05 06:23] VITALS: BP 145/83
[2021-05-05 10:09] LABS: HEMATOCRIT 40.1 % (42.0-52.0); MEAN CELL VOLUME 91 fl (78-100); MEAN CORPUSCULAR HEMOGLOBIN 32 pg (27-31); MEAN CORPUSCULAR HGB CONC 35 g/dL (33-37); MEAN PLATELET VOLUME 10.7 fl (7.4-10.4); PLATELET COUNT 130 K/mm3 (130-400); WHITE BLOOD COUNT 16.4 K/mm3 (4.8-10.8)
[2021-05-05 10:12] LABS: POTASSIUM 3.2 mmol/L (3.5-5.1)
[2021-05-05 10:14] LABS: ALBUMIN 2.4 g/dL (3.4-4.8); CALCIUM 7.4 mg/dL (8.3-10.5)
[2021-05-05 10:16] LABS: TOTAL PROTEIN 4.5 g/dL (6.2-8.1)
[2021-05-05 10:17] LABS: TOTAL BILIRUBIN 0.6 mg/dL (0.2-1.2)
[2021-05-05 10:23] LABS: MAGNESIUM 1.71 mg/dL (1.60-2.60)
[2021-05-05 10:29] VITALS: BP 99/70
[2021-05-05 10:41] LABS: TROPONIN-I 0.044 ng/mL (<0.030)
[2021-05-05 10:46] LABS: LYMPHOCYTE 4 % (20-51); MONOCYTE 4 % (3-10); NEUTROPHILS 92 % (42-75)
== END 2021-05-05 11:19 | disposition short-term general hospital (02) | DRG 641 ==
LOC: MED/SURG 18:52
PROVIDERS: ADMIT Nurse Practitioner
DX: E87.6 Hypokalemia (principal); J96.11 Chronic respiratory failure with hypoxia; Z68.1 Body mass index [BMI] 19.9 or less, adult; N18.30 Chronic kidney disease, stage 3 unspecified; I12.9 Hypertensive chronic kidney disease with stage 1 through stage 4 chronic kidney disease, or unspecified chronic kidney disease; E11.22 Type 2 diabetes mellitus with diabetic chronic kidney disease; G20 Parkinson's disease; E83.39 Other disorders of phosphorus metabolism; E87.8 Other disorders of electrolyte and fluid balance, not elsewhere classified; R62.7 Adult failure to thrive; M10.9 Gout, unspecified; E86.0 Dehydration; J30.9 Allergic rhinitis, unspecified; F17.210 Nicotine dependence, cigarettes, uncomplicated; R53.81 Other malaise; Z79.82 Long term (current) use of aspirin; Z95.810 Presence of automatic (implantable) cardiac defibrillator; Z86.16 Personal history of COVID-19; Z85.51 Personal history of malignant neoplasm of bladder; Z88.2 Allergy status to sulfonamides; Z88.8 Allergy status to other drugs, medicaments and biological substances
CPT/HCPCS: J0696; J1650; J7050; J7070